=== PATIENT | male | born 1990 | race Caucasian/White ===

== ENCOUNTER → 2017-04-18 | Outpatient (REF) | payer BC ==
[2017-04-18 12:31] LABS: URIC ACID 10.4 MG/DL (3.5-7.2)
[2017-04-19 14:16] LABS: Lyme Disease IgG/IgM Antibodie <0.91 ISR (0.00-0.90); Lyme Disease IgM Ab Quantitati <0.80 index (0.00-0.79)
== END ==
LOC: M LABDRAW1 10:42
PROVIDERS: ATTEND Physician Assistant
DX: M25.571 Pain in right ankle and joints of right foot (principal)

== ENCOUNTER → 2017-09-27 | Outpatient (REF) | payer BC ==
[2017-09-27 12:38] LABS: URIC ACID 8.7 MG/DL (3.5-7.2)
== END ==
LOC: M LABDRAW1 11:09
DX: M1A.0790 Idiopathic chronic gout, unspecified ankle and foot, without tophus (tophi) (principal)
CPT/HCPCS: 84550

== ENCOUNTER → 2018-01-06 | Outpatient (REF) | payer BC ==
[2018-01-06 22:41] LABS: APPEARANCE, URINE CLEAR (CLEAR); BACTERIA, URINE AUTO NEGATIVE (NEGATIVE); BILIRUBIN, URINE AUTO NEGATIVE (NEGATIVE); BLOOD, URINE BLOOD NEGATIVE (NEGATIVE); COLOR, URINE YELLOW (YELLOW); GLUCOSE, URINE (UA) AUTO NEGATIVE (NEGATIVE); KETONE, URINE AUTO NEGATIVE (NEGATIVE); LEUKOCYTE ESTERASE, URINE AUTO NEGATIVE (NEGATIVE); MUCUS, URINE SMALL (NEGATIVE); NITRITE, URINE AUTO NEGATIVE (NEGATIVE); PROTEIN, URINE AUTO NEGATIVE (NEGATIVE); RBC, URINE AUTO 0 /HPF (0-3); SQUAMOUS EPITHELIAL CELL UR AU 0 /HPF (0-6); UROBILINOGEN, URINE AUTO 0.2 mg/dL (0.0-2.0); WBC, URINE AUTO 1 /HPF (0-3)
== END ==
LOC: M LAB REF 21:49
DX: N39.0 Urinary tract infection, site not specified (principal)
CPT/HCPCS: 81001

== ENCOUNTER → 2018-07-30 | Outpatient (REF) | payer BC ==
[2018-07-30 19:22] LABS: HEMOGLOBIN A1c 5.3 %
[2018-07-30 19:36] LABS: ALBUMIN 4.3 GM/DL (3.2-5.2); ALT/SGPT 148 U/L (12-78); BILIRUBIN,TOTAL 0.6 MG/DL (0.2-1.0); BLOOD UREA NITROGEN 14 MG/DL (7-18); CALCIUM LEVEL 8.7 MG/DL (8.5-10.1); CARBON DIOXIDE LEVEL 26 MEQ/L (21-32); CHLORIDE LEVEL 104 MEQ/L (98-107); CHOLESTEROL LEVEL 202 MG/DL (<200); CHOLESTEROL RISK RATIO 5.459 (<5); CREATININE FOR GFR 0.79 MG/DL (0.70-1.30); GLOMERULAR FILTRATION RATE > 60.0 (>60); GLUCOSE, FASTING 84 MG/DL (70-100); HDL CHOLESTEROL 37 MG/DL (>40); LDL CHOLESTEROL 94 MG/DL (<100); NON-HDL-C 165 MG/DL; SODIUM LEVEL 138 MEQ/L (136-145); TOTAL 25(OH) VITAMIN D 10.2 NG/ML (30.0-100.0); TOTAL PROTEIN 7.6 GM/DL (6.4-8.2); TRIGLYCERIDES LEVEL 353 MG/DL (<150)
== END ==
LOC: M LAB REF 18:43
PROVIDERS: ATTEND Nurse Practitioner Adult Health
DX: I10 Essential (primary) hypertension (principal); M10.9 Gout, unspecified

== ENCOUNTER → 2018-08-11 | Outpatient (CLI) | payer BC ==
--- NOTE | 2018-08-11 20:26 | REP ---
Clinical: Right upper quadrant pain and elevated liver function test. Technique: Real time shetty scale ultrasound examination using curved array transducer. Findings: Diffuse fatty infiltration to the liver noted. The pancreas is incompletely evaluated due to interposed bowel gas but visualized portions appear normal. The gallbladder is normal and without gallstones, wall thickening, or pericholecystic fluid. No biliary ductal dilatation is appreciated and the common bile duct measures 6.5 mm diameter. The right kidney is normal in reniform shape without hydronephrosis and measures 13.8 x 7.3 x 6.3 cm. No ascites. Impression: Hepatic steatosis. Electronically Signed by Bro Martini MD 08/11/2018 08:17 P
== END ==
LOC: M RAD 09:11
PROVIDERS: ATTEND Nurse Practitioner Adult Health
DX: K76.0 Fatty (change of) liver, not elsewhere classified (principal)

== ENCOUNTER → 2018-10-16 | Outpatient (REF) | payer BC ==
[~2018-10-16] MED LIST: ALEV220T22 PO; ALLO100T; COLC1CAP; CYCL10TA PO; MELO15TA28; PRED20TA PO; VITA500045; [UNRECOGNIZED DRUG - CODE]
[2018-10-16 18:27] LABS: APPEARANCE, URINE CLEAR (CLEAR); BACTERIA, URINE AUTO NEGATIVE (NEGATIVE); BILIRUBIN, URINE AUTO NEGATIVE (NEGATIVE); BLOOD, URINE BLOOD NEGATIVE (NEGATIVE); COLOR, URINE YELLOW (YELLOW); GLUCOSE, URINE (UA) AUTO NEGATIVE (NEGATIVE); KETONE, URINE AUTO NEGATIVE (NEGATIVE); LEUKOCYTE ESTERASE, URINE AUTO NEGATIVE (NEGATIVE); MUCUS, URINE SMALL (NEGATIVE); NITRITE, URINE AUTO NEGATIVE (NEGATIVE); PROTEIN, URINE AUTO NEGATIVE (NEGATIVE); RBC, URINE AUTO 0 /HPF (0-3); SPECIFIC GRAVITY URINE AUTO 1.018 (1.002-1.035); SQUAMOUS EPITHELIAL CELL UR AU 0 /HPF (0-6); UROBILINOGEN, URINE AUTO 0.2 mg/dL (0.0-2.0); WBC, URINE AUTO 0 /HPF (0-3)
[2018-10-16 18:54] LABS: ALBUMIN 4.3 GM/DL (3.2-5.2); ALT/SGPT 208 U/L (12-78); BILIRUBIN,TOTAL 0.6 MG/DL (0.2-1.0); BLOOD UREA NITROGEN 15 MG/DL (7-18); CALCIUM LEVEL 8.9 MG/DL (8.5-10.1); CARBON DIOXIDE LEVEL 26 MEQ/L (21-32); CHLORIDE LEVEL 104 MEQ/L (98-107); CREATININE FOR GFR 0.84 MG/DL (0.70-1.30); GLOMERULAR FILTRATION RATE > 60.0 (>60); GLUCOSE, FASTING 105 MG/DL (70-100); POTASSIUM SERUM 4.6 MEQ/L (3.5-5.1); SODIUM LEVEL 138 MEQ/L (136-145); TOTAL PROTEIN 7.7 GM/DL (6.4-8.2); URIC ACID 7.8 MG/DL (3.5-7.2)
[2018-10-16 19:02] LABS: TOTAL 25(OH) VITAMIN D 20.2 NG/ML (30.0-100.0)
== END ==
LOC: M LAB REF 17:18
PROVIDERS: ATTEND Nurse Practitioner Adult Health
DX: Z13.9 Encounter for screening, unspecified (principal)

== ENCOUNTER 2018-10-21 06:18 | Emergency (ER) | payer BC ==
[~2018-10-21] VITALS: Ht 188 cm; Wt 177.3 kg
[2018-10-21] MEDS ORDERED: COLC1CAP (06:26)
[2018-10-21] MEDS ORDERED: VITA500045 (06:26)
[2018-10-21] MEDS ORDERED: ALEV220T22 PO (06:26)
[2018-10-21] MEDS ORDERED: MELO15TA28 (06:26)
[2018-10-21] MEDS ORDERED: [UNRECOGNIZED DRUG - CODE] (06:26)
[2018-10-21] MEDS ORDERED: ALLO100T (06:26)
[2018-10-21] MEDS ORDERED: diazePAM 10 MG TAB PO ONE (06:45)
[2018-10-21] MEDS ORDERED: ACETAMINOPHEN 500 MG TAB PO ONE (06:45)
--- NOTE | 2018-10-21 07:32 | REP ---
Clinical: Trauma . Technique: AP, lateral, bilateral oblique, and coned-down views. Findings: Alignment and lordosis is maintained. The vertebral bodies including transverse process and spinous processes are intact and normal. There is no evidence for acute fracture / compression injury or subluxation. No evidence for spondylolysis or spondylolisthesis. No significant degenerative change is noted. Impression: Normal lumbosacral spine radiograph series. Electronically Signed by Bro Martini MD 10/21/2018 07:24 A
--- NOTE | 2018-10-21 07:34 | REP ---
Clinical: Trauma. Technique: AP and frog lateral views of the mid to distal femur (proximal to mid femur evaluated in hip series). Findings: Visualized femur appears intact. No acute fracture dislocation. Surrounding soft tissues normal. No subcutaneous emphysema or foreign body. Impression: No acute fracture or dislocation. Electronically Signed by Bro Martini MD 10/21/2018 07:25 A
--- NOTE | 2018-10-21 07:36 | REP ---
Clinical: Trauma with acute left hip pain. Technique: Frontal view of the pelvis with neutral and frog lateral views of the left hip. Findings: Osseous structures and joint spaces are intact and normal. Hip joints appear symmetric on frontal pelvic radiograph. No acute fracture or dislocation. No significant degenerative or congenital abnormalities are appreciated. Surrounding soft tissues are unremarkable. Impression: Normal pelvis and left hip series. No fracture or dislocation. Electronically Signed by Bro Martini MD 10/21/2018 07:28 A
[2018-10-21 07:46] VITALS: BP 155/92
[2018-10-21] MEDS ORDERED: CYCL10TA PO (07:54)
[2018-10-21] MEDS ORDERED: PRED20TA PO (07:54)
== END 2018-10-21 08:07 | disposition home or self-care (01) ==
LOC: M ED 06:18
DX: M54.5 Low back pain (principal); M25.552 Pain in left hip; M79.652 Pain in left thigh; I10 Essential (primary) hypertension; Z79.899 Other long term (current) drug therapy

== ENCOUNTER → 2019-03-10 | Outpatient (REF) | payer BC ==
[2019-03-10 19:34] LABS: ALBUMIN 4.2 GM/DL (3.2-5.2); ALT/SGPT 134 U/L (12-78); BILIRUBIN,TOTAL 0.6 MG/DL (0.2-1.0); BLOOD UREA NITROGEN 12 MG/DL (7-18); CALCIUM LEVEL 9.5 MG/DL (8.5-10.1); CARBON DIOXIDE LEVEL 28 MEQ/L (21-32); CHLORIDE LEVEL 103 MEQ/L (98-107); CREATININE FOR GFR 0.83 MG/DL (0.70-1.30); GLOMERULAR FILTRATION RATE > 60.0 (>60); GLUCOSE, FASTING 88 MG/DL (70-100); POTASSIUM SERUM 4.2 MEQ/L (3.5-5.1); SODIUM LEVEL 138 MEQ/L (136-145); TOTAL PROTEIN 7.7 GM/DL (6.4-8.2)
== END ==
LOC: M LAB REF 18:22
PROVIDERS: ATTEND Nurse Practitioner Adult Health
DX: R79.89 Other specified abnormal findings of blood chemistry (principal)

== ENCOUNTER → 2019-04-28 | Outpatient (REF) | payer BC ==
[2019-04-28 18:41] LABS: BASO % 0.3 % (0.0-1.0); EOS # 0.1 10^3/uL (0.0-0.5); EOS % 1.1 % (0.0-3.0); HEMATOCRIT 45.1 % (42.0-52.0); LYMPH # 2.1 10^3/uL (1.5-5.0); LYMPH % 31.6 % (24.0-44.0); MEAN CORPUSCULAR HGB CONC 33.3 g/dl (32.0-36.5); MEAN CORPUSCULAR VOLUME 84.3 fl (80.0-96.0); MONO # 0.4 10^3/uL (0.0-0.8); MONO % 5.5 % (0.0-5.0); NEUTROPHILS % 61.2 % (36.0-66.0); PLATELET COUNT, AUTOMATED 227 10^3/uL (150-450); RED BLOOD COUNT 5.35 10^6/uL (4.30-6.10); WHITE BLOOD COUNT 6.5 10^3/uL (4.0-10.0)
[2019-04-28 19:00] LABS: ALT/SGPT 124 U/L (12-78); BILIRUBIN,TOTAL 0.9 MG/DL (0.2-1.0); BLOOD UREA NITROGEN 11 MG/DL (7-18); CALCIUM LEVEL 9.2 MG/DL (8.5-10.1); CARBON DIOXIDE LEVEL 26 MEQ/L (21-32); CHLORIDE LEVEL 103 MEQ/L (98-107); CREATININE FOR GFR 0.79 MG/DL (0.70-1.30); GLOMERULAR FILTRATION RATE > 60.0 (>60); GLUCOSE, FASTING 90 MG/DL (70-100); POTASSIUM SERUM 4.1 MEQ/L (3.5-5.1); SODIUM LEVEL 138 MEQ/L (136-145); TOTAL 25(OH) VITAMIN D 20.2 NG/ML (30.0-100.0); TOTAL PROTEIN 7.7 GM/DL (6.4-8.2); URIC ACID 6.8 MG/DL (3.5-7.2)
[2019-04-28 19:51] LABS: HEMOGLOBIN A1c 5.3 %
[2019-04-28 19:51] LABS: APPEARANCE, URINE CLEAR (CLEAR); BACTERIA, URINE AUTO NEGATIVE (NEGATIVE); BILIRUBIN, URINE AUTO NEGATIVE (NEGATIVE); BLOOD, URINE BLOOD NEGATIVE (NEGATIVE); COLOR, URINE YELLOW (YELLOW); GLUCOSE, URINE (UA) AUTO NEGATIVE (NEGATIVE); KETONE, URINE AUTO NEGATIVE (NEGATIVE); LEUKOCYTE ESTERASE, URINE AUTO NEGATIVE (NEGATIVE); MUCUS, URINE SMALL (NEGATIVE); NITRITE, URINE AUTO NEGATIVE (NEGATIVE); PROTEIN, URINE AUTO NEGATIVE (NEGATIVE); RBC, URINE AUTO 0 /HPF (0-3); SPECIFIC GRAVITY URINE AUTO 1.021 (1.002-1.035); SQUAMOUS EPITHELIAL CELL UR AU 0 /HPF (0-6); UROBILINOGEN, URINE AUTO 0.2 mg/dL (0.0-2.0); WBC, URINE AUTO 3 /HPF (0-3)
== END ==
LOC: M LAB REF 16:36
PROVIDERS: ATTEND Nurse Practitioner Adult Health
DX: R53.81 Other malaise (principal)

== ENCOUNTER → 2019-09-02 | Outpatient (REF) | payer BC ==
[~2019-09-02] MED LIST changes: +[UNRECOGNIZED DRUG - CODE]; -[UNRECOGNIZED DRUG - CODE]
[2019-09-02 19:40] LABS: ALBUMIN 3.8 GM/DL (3.2-5.2); ALT/SGPT 123 U/L (12-78); BILIRUBIN,TOTAL 0.4 MG/DL (0.2-1.0); BLOOD UREA NITROGEN 12 MG/DL (7-18); CALCIUM LEVEL 8.4 MG/DL (8.5-10.1); CARBON DIOXIDE LEVEL 29 MEQ/L (21-32); CHLORIDE LEVEL 106 MEQ/L (98-107); CREATININE FOR GFR 0.78 MG/DL (0.70-1.30); GLOMERULAR FILTRATION RATE > 60.0 (>60); GLUCOSE, FASTING 127 MG/DL (70-100); RHEUMATOID FACTOR QUANT < 10.0 IU/ML (<15.0); SODIUM LEVEL 139 MEQ/L (136-145); TOTAL PROTEIN 7.2 GM/DL (6.4-8.2); URIC ACID 6.1 MG/DL (3.5-7.2)
[2019-09-02 19:50] LABS: TOTAL 25(OH) VITAMIN D 12.7 NG/ML (30.0-100.0)
[2019-09-02 20:07] LABS: HEMOGLOBIN A1c 5.6 %
[2019-09-04 14:08] LABS: ANTI DOUBLE STRAND-DNA AB <1 IU/mL (0-9); ANTINUCLEAR ANTIBODIES DIRECT Positive (Negative); Lyme Disease IgG/IgM Antibodie <0.91 ISR (0.00-0.90); Lyme Disease IgM Ab Quantitati <0.80 index (0.00-0.79); RNP ANTIBODIES 1.1 AI (0.0-0.9); SJOGREN'S ANTI SS-A <0.2 AI (0.0-0.9); SJOGREN'S ANTI SS-B <0.2 AI (0.0-0.9); SMITH ANTIBODIES <0.2 AI (0.0-0.9)
== END ==
LOC: M LAB REF 19:14
PROVIDERS: ATTEND Nurse Practitioner Adult Health
DX: R79.89 Other specified abnormal findings of blood chemistry (principal); Z13.9 Encounter for screening, unspecified; M25.50 Pain in unspecified joint

== ENCOUNTER → 2020-03-04 | Outpatient (REF) | payer BC ==
[~2020-03-04] MED LIST changes: +CYCL-707 PO; -CYCL10TA PO
[2020-03-04 13:15] LABS: ALBUMIN 3.8 GM/DL (3.2-5.2); ALT/SGPT 161 U/L (12-78); BILIRUBIN,TOTAL 0.6 MG/DL (0.2-1.0); BLOOD UREA NITROGEN 10 MG/DL (7-18); CALCIUM LEVEL 9.6 MG/DL (8.5-10.1); CARBON DIOXIDE LEVEL 32 MEQ/L (21-32); CHLORIDE LEVEL 105 MEQ/L (98-107); CREATININE FOR GFR 0.79 MG/DL (0.70-1.30); FREE T4 0.96 NG/DL (0.76-1.46); GLOMERULAR FILTRATION RATE > 60.0 (>60); GLUCOSE, FASTING 95 MG/DL (70-100); IRON (FE) 81 UG/DL (65-175); POTASSIUM SERUM 4.5 MEQ/L (3.5-5.1); SODIUM LEVEL 137 MEQ/L (136-145); TOTAL PROTEIN 7.6 GM/DL (6.4-8.2)
[2020-03-04 16:56] LABS: TESTOSTERONE 382 NG/DL (241-827); VITAMIN B12 LEVEL 395 PG/ML (247-911)
[2020-03-07 10:22] LABS: TOTAL 25(OH) VITAMIN D 33.3 NG/ML (30.0-100.0)
== END ==
LOC: M LAB REF 11:21
PROVIDERS: ATTEND Nurse Practitioner Adult Health
DX: R53.81 Other malaise (principal)

== ENCOUNTER → 2020-05-29 | Outpatient (CLI) | payer SELFPAY | LOC: M LABSMTC 10:45 | PROVIDERS: ATTEND Pediatrics | DX: Z20.828 Contact with and (suspected) exposure to other viral communicable diseases (principal) ==

== ENCOUNTER → 2021-08-16 | Outpatient (CLI) | payer BC ==
[2021-08-16 15:21] LABS: HEMATOCRIT 44.6 % (42.0-52.0); HEMOGLOBIN 15.2 g/dl (13.5-17.5); MEAN CORPUSCULAR HEMOGLOBIN 28.3 pg (27.0-33.0); MEAN CORPUSCULAR HGB CONC 34.1 g/dl (32.0-36.5); MEAN CORPUSCULAR VOLUME 82.9 fl (80.0-96.0); PLATELET COUNT, AUTOMATED 223 10^3/uL (150-450); RED BLOOD COUNT 5.38 10^6/uL (4.30-6.10); WHITE BLOOD COUNT 7.2 10^3/uL (4.0-10.0)
[2021-08-16 15:53] LABS: ERYTHROCYTE SEDIMENTATION RATE 13 mm/hr (0-15)
[2021-08-16 15:54] LABS: ALT/SGPT 108 U/L (12-78); BILIRUBIN,TOTAL 0.6 MG/DL (0.2-1.0); BLOOD UREA NITROGEN 10 MG/DL (7-18); C REACTIVE PROTEIN QUANTITATIV 1.13 MG/DL (0.00-0.30); CARBON DIOXIDE LEVEL 29 MEQ/L (21-32); CHLORIDE LEVEL 106 MEQ/L (98-107); CREATININE FOR GFR 0.82 MG/DL (0.70-1.30); GLOMERULAR FILTRATION RATE > 60.0 (>60); GLUCOSE, FASTING 166 MG/DL (70-100); RHEUMATOID FACTOR QUANT < 10.0 IU/ML (<15.0); SODIUM LEVEL 139 MEQ/L (136-145); TOTAL PROTEIN 7.2 GM/DL (6.4-8.2); URIC ACID 8.4 MG/DL (3.5-7.2)
[2021-08-16 15:56] LABS: TOTAL 25(OH) VITAMIN D 28.4 NG/ML (30.0-100.0)
== END ==
LOC: M PLALAB 12:44
PROVIDERS: ATTEND Family Medicine
DX: M25.50 Pain in unspecified joint (principal)

== ENCOUNTER → 2024-01-01 | Outpatient (CLI) | payer OTHER | LOC: M WUC 14:20 | PROVIDERS: ATTEND Physician Assistant | DX: S61.432A Puncture wound without foreign body of left hand, initial encounter (principal); W18.30XA Fall on same level, unspecified, initial encounter; Y92.009 Unspecified place in unspecified non-institutional (private) residence as the place of occurrence of the external cause ==

== ENCOUNTER → 2024-07-27 | Outpatient (CLI) | payer OTHER ==
[2024-07-27 14:14] LABS: BASO % 0.2 % (0.0-1.0); EOS # 0.2 10^3/uL (0.0-0.5); EOS % 1.9 % (0.0-3.0); HEMATOCRIT 46.8 % (42.0-52.0); HEMOGLOBIN 15.2 g/dl (13.5-17.5); LYMPH # 2.4 10^3/uL (1.5-5.0); LYMPH % 29.4 % (24.0-44.0); MEAN CORPUSCULAR HEMOGLOBIN 27.7 pg (27.0-33.0); MEAN CORPUSCULAR HGB CONC 32.5 g/dl (32.0-36.5); MEAN CORPUSCULAR VOLUME 85.2 fl (80.0-96.0); MONO # 0.5 10^3/uL (0.0-0.8); MONO % 6.2 % (2.0-8.0); NEUTROPHILS % 62.1 % (36.0-66.0); PLATELET COUNT, AUTOMATED 241 10^3/uL (150-450); RED BLOOD COUNT 5.49 10^6/uL (4.30-6.10)
[2024-07-27 14:19] LABS: ALBUMIN 3.9 G/DL (3.2-5.2); ALKALINE PHOSPHATASE 92 U/L (40-129); ALT/SGPT 58 U/L (7.0-40); AST/SGOT 27 U/L (<34); BILIRUBIN,TOTAL 0.5 MG/DL (0.3-1.2); BLOOD UREA NITROGEN 13 MG/DL (9-23); CALCIUM LEVEL 9.2 MG/DL (8.5-10.1); CARBON DIOXIDE LEVEL 28 MMOL/L (20-31); CHLORIDE LEVEL 105 MMOL/L (98-107); CHOLESTEROL LEVEL 175 MG/DL (<200); CHOLESTEROL RISK RATIO 5.33 (<5); CREATININE FOR GFR 0.84 MG/DL (0.70-1.30); GLOMERULAR FILTRATION RATE > 60.0 (>60); GLUCOSE, FASTING 111 MG/DL (60-100); HDL CHOLESTEROL 32.8 MG/DL (>40); LDL CHOLESTEROL 94.4 MG/DL (<100); NON-HDL-C 142.2 MG/DL; POTASSIUM SERUM 4.7 MMOL/L (3.5-5.1); SODIUM LEVEL 143 MMOL/L (136-145); TOTAL PROTEIN 7.8 G/DL (5.7-8.2); TRIGLYCERIDES LEVEL 239 MG/DL (<150)
[2024-07-27 14:20] LABS: TOTAL 25(OH) VITAMIN D 20.2 NG/ML (20.0-100.0)
[2024-07-27 14:28] LABS: URIC ACID 10.9 MG/DL (3.7-9.2)
== END ==
LOC: M PLALAB 09:35
PROVIDERS: ATTEND Family Medicine
DX: M10.9 Gout, unspecified (principal); E55.9 Vitamin D deficiency, unspecified; I10 Essential (primary) hypertension